=== PATIENT | male | born 2000 | race Two or more races ===

== ENCOUNTER 2024-11-15 16:02 | Emergency (ER) | payer MEDICAID, SELFPAY ==
[2024-11-15 16:02] VITALS: BMI 25.7
[2024-11-15 16:42] VITALS: BP 144/80; PULSE 79; RESP 18; TEMP 36.9; O2SAT 97
--- NOTE | 2024-11-15 17:22 | PD.EDADULT ---
ED General RME/HPI General Chief complaint: Animal Bite Stated complaint: DOG BITE TO LEFT CALF TODAY Time Seen by Provider: 11/15/24 17:21 Arrival date/time: 11/15/24 16:02 CC: Left leg puncture wound secondary to dog bite HPI onset approximately 1 hour ago. The patient admits that he got between his dog and another dog who were fighting. Patient knows who the dog's admin prog coord is knocked on the door but was able to have anybody answer. Patient is awake alert oriented stable vital signs nontoxic-appearing not in any acute distress. Related Data Previous Rx's ?Medication ?Instructions ?Recorded ibuprofen 400 mg tablet 400 mg PO Q6H #40 tabs 02/24/19 naproxen 500 mg tablet 500 mg PO BID PRN pain #30 tabs 08/25/23 pantoprazole 40 mg tablet,delayed 40 mg PO QDAY #14 tabs 10/31/23 release (Protonix) ibuprofen 600 mg tablet 600 mg PO Q6H #30 tabs 03/18/24 Allergies Allergy/AdvReac Type Severity Reaction Status Date / Time No Known Allergies Allergy Verified 11/15/24 16:04 Review of Systems Review of Systems Narrative Review of Systems: GEN: No fever, no chills, no weight loss EYES: No discharge, no visual changes, no pain HEENT: No ear pain, no congestion, no sore throat PULM: No shortness of breath, no cough, no congestion CV: No chest pain, no dyspnea on exertion, no palpitations GI: No nausea, no vomiting, no diarrhea, no pain, no constipation : No frequency, no urgency, no dysuria MUSC/SKEL: No joint pain, no back pain SKIN: No rash,+ puncture wound PSYCH: No hallucinations, no depression HEME/LYMPH: No easy bleeding or bruising tendencies NEURO: No weakness, no headache Past Medical History Past Medical History NEUROLOGIC: Negative Neurological Disorders CARDIAC: Negative Cardiac Disorders or Congestive Heart Failure RESPIRATORY: Negative Chronic Obstructive Pulmonary Disease (COPD) GENITOURINARY: Negative Renal Disease ENDOCRINE: Negative Diabetes Mellitus Type 1 or Diabetes Mellitus Type 2 Social History SMOKING STATUS: Current every day smoker ED Exam Narrative Physical exam: [General: Not in any acute distress Head normocephalic HEENT: Within acceptable limits Neck is supple nontender Chest equal chest rise nontender to palpation Respiratory: Clear to auscultation no wheezes crackles or rubs CV: Rate rhythm is regular no murmurs rubs or clicks Abdomen is soft nontender no masses positive bowel sounds all 4 quadrants Back: No CVA tenderness no spinous process tenderness from cervical spine thoracic and lumbar spine Skin: Single puncture wound with partial-thickness abrasions surrounding it to the left medial lower leg distal to the knee. Small partial-thickness abrasion to the left medial inner thigh no active bleeding. Otherwise skin is intact no petechiae rash induration ulceration or crepitus Extremities: Moving all extremity against resistance cap refill less than 2 seconds neurosensory intact Neuro: Awake alert oriented x3 Glascow coma 15 no focal deficits] Course Quality Measures none Orders Category Date Time Status Amoxicillin/Pot Clav 875 [Augmentin 875] Med 11/15/24 17:21 Once 1 tab PO X1 ONE Vital Signs Vital signs: Vital Signs Temperature 98.5 F 11/15/24 16:42 Pulse Rate 79 11/15/24 16:42 Respiratory Rate 18 11/15/24 16:42 Blood Pressure 144/80 H 11/15/24 16:42 Pulse Oximetry (%) 97 11/15/24 16:42 Oxygen Delivery Method Room Air 11/15/24 16:42 [facility] Patient data External records reviewed:: [facility] previous records Clinical information provided by:: patient Social determinants that could affect healthcare access:: none Patient has the following chronic illnesses:: None How is presenting disease/condition affected by chronic disease/condition?: uneffected by Evaluation data The following diagnostics were reviewed and interpreted by me:: other (specify) (None) Lab and/or radiology exams considered but not ordered:: None Interpretation Summary: Left lower leg dog bite Medications Medications considered but not ordered:: None Medication administrations:: None Consultations Consultation(s) initiated? (list below): No Diagnosis Differential Diagnosis ED Complaint MDM: Dog bite puncture wound cellulitis Most likely diagnosis given after review of the tests above:: Puncture wound/dog bite Admission Indicated Admission indicated?: not indicated Explain why admission is indicated or not indicated:: Stable for outpatient follow-up Admission Request Was there a request for admission?: No Disposition Plan Disposition Plan: Discharge Discharge Attestation Discharge Attestation: The patient and all family members were given an opportunity to ask questions and understood the discharge instructions. Discharge instructions specifically effects, indications for sooner follow up or return to the emergency department, and the expected course of current diagnosis. Patient condition: Stable Medical Decision Making Differential Diagnosis Differential Diagnosis: Dog bite puncture wound cellulitis Discharge Plan Plan Patient Disposition: HOME (Self Care) Patient condition on transfer: Stable Prescriptions/Referrals Prescriptions/Med Rec: No Action ibuprofen 400 mg tablet 400 mg PO Q6H Qty: 40 0RF pantoprazole [Protonix] 40 mg tablet,delayed release (DR/EC) 40 mg PO QDAY Qty: 14 0RF naproxen 500 mg tablet 500 mg PO BID PRN (Reason: pain) Qty: 30 0RF ibuprofen 600 mg tablet 600 mg PO Q6H Qty: 30 0RF Referrals: Shekhar Ayala MD [Physician] - In 1 week Problem List Clinical Impression: Dog bite, Puncture wound of lower leg Patient/Caregiver Discharge Instructions Education Materials: ED Dog Bite, ED Animal Bite (General) Additional Instructions: Follow-up with the owners of the dog that bit you to confirm that the patient dog has the rabies vaccinations. Contact animal control if necessary. If you need a rabies injections return to the emergency room or follow-up with your primary care provider. Print Language: Ukrainian Stand Alone Forms: Francia Award Info., Patient Portal Info Letter, Work/School Release PA/ASHWINI Supervising Physician PA/AGRICULTURE ENGINEER Supervising Physician: Prakash Howard ENP
[2024-11-15] MEDS: AMOXICILLIN/POT CLAV 875 TABLET 1 TAB PO (17:53)
== END 2024-11-15 17:55 | disposition home or self-care (01) ==
PROVIDERS: Emergency Provider Emergency Medicine
DX: S81.832A Puncture wound without foreign body, left lower leg, initial encounter (principal); W54.0XXA Bitten by dog, initial encounter
CPT/HCPCS: 99282; A9270